=== PATIENT | male | born 1975 | race Caucasian/White ===

== ENCOUNTER → 2016-08-27 | Outpatient (CLI) | payer BC ==
[~2016-08-27] MED LIST: ACET-749 PO; CHOLCAP5 PO; DIPH25TA24 PO; DULO-24 PO; GABA1CAP4 PO; HYDR-5688 PO; IBUP-1050 PO; MELO15TA4 PO; TRAM-10 PO; TURM1CAP4 PO
--- NOTE | 2016-08-27 11:50 | DIAGNOSTIC IMAGING REPORT ---
MRI OF THE CERVICAL SPINE WITHOUT CONTRAST CLINICAL HISTORY: Right cervical radiculopathy. Status post right C7-T1 foraminotomy. COMPARISON: MRI of the cervical spine November 25, 2015 TECHNIQUE: Utilizing a 0.7 Mary Ann open magnet and dedicated coil, multiplanar, multiecho imaging of the cervical spine was performed without IV contrast. FINDINGS: Alignment of the cervical spine is anatomic. Vertebral body heights are maintained. There is no marrow replacement. Cervical cord signal and caliber are normal. There is no intracanalicular mass or fluid collection. Visualized portions of the posterior fossa are unremarkable. C2-C3: The central canal and neural foramen are patent. C3-C4: The central canal and neural foramen are patent. C4-C5: The central canal and neural foramen are patent. C5-C6: The central canal and neural foramen are patent. There is minimal disc bulge. C6-C7: The central canal and neural foramen are patent. There is minimal disc bulge. C7-T1: Post surgical findings are noted suggestive of a right hemilaminotomy. A right paracentral/foraminal disc protrusion with associated uncovertebral hypertrophy is again noted. Severe right neural foraminal narrowing is noted. The left neural foramen is patent. IMPRESSION: 1. Right paracentral/right foraminal disc osteophyte complex and uncovertebral hypertrophy at C7-T1 which result in severe narrowing of the right neural foramen. 2. Post surgical findings at the C7-T1 level. No significant central canal stenosis. Normal cervical cord signal and caliber. 3. Minimal disc bulges at C5-C6 and C6-C7. Electronically signed by: Sony Hernandez M.D. 08/27/2016 11:48 AM
== END | disposition home or self-care (01) ==
LOC: C.OPENMRI 10:26
PROVIDERS: ATTEND Orthopaedic Surgery
DX: M54.12 Radiculopathy, cervical region (principal)

== ENCOUNTER → 2017-07-30 | Outpatient (CLI) | payer BC ==
--- NOTE | 2017-07-30 12:19 | DIAGNOSTIC IMAGING REPORT ---
L-SPINE MIN 4 VIEWS ROUTINE HISTORY: 42 years-old Male BILATERAL LOW BACK PAIN WITH LEFT SIDED SCIATICA acute low back pain with left-sided sciatica COMPARISON: CT abdomen and pelvis 06/27/2016 TECHNIQUE: 5 views of the lumbar spine FINDINGS: 5 nonrib-bearing lumbar type vertebral segments. No spondylolysis or spondylolisthesis. Rudimentary disc space is noted at S1-S2. Mild to moderate intervertebral disc space narrowing at L5-S1. Mild multilevel endplate spurring without acute fracture or subluxation. Mild intervertebral disc space narrowing is also present at the T11-T12 level. IMPRESSION: 1. No acute fracture or subluxation. 2. Mild degenerative changes as above. The above report was generated using voice recognition software. It may contain grammatical, syntax or spelling errors. Electronically signed by: El Brown M.D. 07/30/2017 12:17 PM Dictated Date/Time: 07/30/2017 12:11 PM
== END | disposition home or self-care (01) ==
LOC: C.RAD 10:41
PROVIDERS: ATTEND Nurse Practitioner Family
DX: M54.41 Lumbago with sciatica, right side (principal); M54.42 Lumbago with sciatica, left side

== ENCOUNTER 2017-08-02 07:05 | Emergency (ER) | payer BC ==
[~2017-08-02] VITALS: Ht 167.6 cm; Wt 106.0 kg
[2017-08-02 07:10] VITALS: TEMP 36.3; Ht 167.6 cm; Wt 106.0 kg
[2017-08-02] MEDS ORDERED: DULO1CAP40 PO (07:46)
[2017-08-02] MEDS ORDERED: NAPR-1169 PO (07:46)
[2017-08-02] MEDS ORDERED: KETOROLAC TROMETHAMINE 60 MG/2 ML VIAL IM STA (08:03)
[2017-08-02] MEDS ORDERED: DEXAMETHASONE SOD INJ 4 MG/ML VIAL IM STA (08:03)
[2017-08-02] MEDS ORDERED: ONDANSETRON 4MG OD TAB PO STA (08:03)
[2017-08-02] MEDS ORDERED: MoRPHine SULFATE 10 MG/ML CARP/VIAL IM STA (08:03)
[2017-08-02] MEDS ORDERED: CYCL10TA6 PO (08:26)
[2017-08-02] MEDS ORDERED: HYDR-5688 PO (08:26)
[2017-08-02] MEDS ORDERED: METH4PAK PO (08:26)
--- NOTE | 2017-08-02 08:46 | EMERGENCY ROOM VISIT NOTE ---
ED Visit Note First contact with patient: 07:20 CHIEF COMPLAINT: Low back pain 1 week HISTORY OF PRESENT ILLNESS: Patient is a 42-year-old white male who presents emergency department accompanied by his for evaluation of low back pain 1 week. He reports that he has had problems with his low back for at least a year , but his pain has been worse over the last week after he states that he tripped over a ladder and fell. He saw his primary care provider 3 days ago, and had lumbar spine x-rays performed. He was told to take naproxen which he has been taking as discussed. He tried using ice intermittently. He notes a constant, stabbing pain in the left low back, that radiates to the lateral aspect of the hip out the lateral aspect of the thigh. It is not go below the knee. Pain is worse with any attempts at movement. This morning he states that his left leg gave out on him due to pain. He rates his discomfort a 9/10. He denies any symptoms in the right leg. No bowel or bladder incontinence. No saddle anesthesias. He denies any numbness, tingling or weakness into the lower extremities. He denies any abdominal pain, nausea or vomiting. No urinary symptoms. He is most comfortable when a flying flat on his back. REVIEW OF SYSTEMS: Review of systems as per HPI. All other systems reviewed were negative. 10 systems reviewed. PMH: Electronic medical records are reviewed and summarized as above/below. See Problem List. SOCIAL HISTORY: Patient lives at home with his . Nonsmoker. He is employed. PHYSICAL EXAM: Vital Signs: Reviewed Nurse's notes. CONSTITUTIONAL: Patient is uncomfortable appearing 42-year-old white male who is awake and alert laying supine on the gurney in moderate distress due to their back pain. There is significant discomfort with position changes. CARDIOVASCULAR: Regular rate and rhythm, with normal S1 and S2, no murmur or gallop or rub is heard. No carotid bruits auscultated. No JVD. Peripheral pulses easily palpable. RESPIRATORY: Breath sounds equal and clear to auscultation without wheezes, rales, or rhonchi heard. Full and equal chest expansion without accessory muscle use or retractions. ABDOMEN: Bowel sounds are present. Abdomen is soft, nontender and nondistended. INTEGUMENTARY: No lesions or rash, normal skin turgor. LYMPH: No lymphadenopathy. SPINE: Examination of the patient's back does not demonstrate any ecchymosis, abrasions or outward signs of trauma. No erythema, increased warmth or induration. There is no midline tenderness to palpation over the spinous processes. No reproducible paraspinous muscle tenderness or spasm. There is no pain over the SI joint or the sciatic notch. He has increased pain with range of motion including rotation and flexion. EXTREMITIES: Leg lengths are symmetrical. Negative logroll bilaterally. Normal strength including dorsi-flexion and plantar flexion of the great toes and ankles and flexion and extension of the knees and flexion of the hips. Positive left straight leg raise testing, negative right straight leg raise testing. Lower extremity DTRs are equal and symmetrical bilaterally. Distal pulses are easily palpable. Sensation light touch is intact over the lower extremities bilaterally. EMERGENCY DEPARTMENT COURSE: The patient was seen and evaluated as above. Old records were reviewed. X-rays from 2 days ago noted some mild degenerative changes. Treatment options were discussed with the patient. He does not have any physical exam findings that are concerning for acute cord compression or cauda equina syndrome. He did have a fall recently, but had negative radiographs just 3 days ago. He has been taking NSAIDs without relief. The patient was treated with IM Toradol, morphine, Decadron and oral Zofran. He was reassessed, and reported that his pain had improved. He was able to move around on the bed more easily. He rated his discomfort a 2/10 at discharge. Conservative care measures were discussed with the patient. He was placed on a Medrol Dosepak, and given Flexeril and [place]um that he can use for breakthrough spasms/pain. He was discharged home with his driving. Advised to follow- up with his primary care provider for further care and evaluation as he may require PT for pain management referral. Patient was reviewed in the [facility] Prescription Drug Monitoring Program, and there were no red flags noted. Blood pressure screening: Patient was found to have a slightly elevated blood pressure due to circumstances. I do not believe that the patient requires hypertension monitoring. MEDICAL DECISION MAKING: I do not suspect acute compression syndrome, cauda equina, diskitis, epidural abscess, hematoma or neurovascular compromise. Problem List Medical Problems: (1) Anxiety State Nos Status: Chronic (2) Arm pain, right Status: Resolved (3) Cellulitis of left hand Status: Resolved (4) Cervical spine disease Status: Resolved (5) Depressive Disorder Nec Status: Chronic (6) Hypertension Nos Status: Chronic (7) Kidney stones Status: Chronic (8) Lumbago Status: Chronic (9) Post-operative pain Status: Resolved (10) Postoperative seroma Status: Resolved (11) Puncture wound of left hand Status: Resolved (12) Tobacco Use Disorder Status: Resolved (13) Work related injury Status: Resolved Surgical Problems: (1) History of cervical spinal arthrodesis Status: Resolved (2) [place] Teeth Removal Status: Resolved Current/Historical Medications Scheduled Duloxetine HCl (Duloxetine HCl), 60 MG PO DAILY Methylprednisolone (Medrol Dosepak), 0 PO DAILY Naproxen (Naprosyn), 500 MG PO DAILY Scheduled PRN Cyclobenzaprine Hcl (Flexeril), 10 MG PO TID PRN for Muscle Spasms Hydrocodone/Acetaminophen 5MG/325MG ([place] 5MG/325MG), 1-2 TABLETS PO Q4 PRN for Pain Allergies Coded Allergies: Oxycodone (Verified Allergy, Unknown, itching, 08/02/17) Nitroglycerin (Unverified Adverse Reaction, Intermediate, syncopal episodes, 08/02/17) Vital Signs Date Time Temp Pulse Resp B/P (MAP) Pulse Ox O2 Delivery O2 Flow Rate FiO2 08/02/17 08:53 68 16 152/97 96 08/02/17 08:43 68 16 152/97 96 Room Air 08/02/17 07:10 36.3 78 20 166/122 96 Room Air Medications Administered Medications (Trade) Dose Ordered Sig/Alli Route Start Time Stop Time Status Last Admin Dose Admin Morphine Sulfate (MoRPHine SULFATE INJ) 10 mg NOW STAT IM 08/02/17 08:03 08/02/17 08:05 DC 08/02/17 08:13 10 MG Ketorolac Tromethamine (Toradol Inj) 60 mg NOW STAT IM 08/02/17 08:03 08/02/17 08:06 DC 08/02/17 08:12 60 MG Dexamethasone Sodium Phosphate (Decadron Inj) 10 mg NOW STAT IM 08/02/17 08:03 08/02/17 08:06 DC 08/02/17 08:13 10 MG Ondansetron HCl (Zofran Odt) 4 mg NOW STAT PO 08/02/17 08:03 08/02/17 08:06 DC 08/02/17 08:12 4 MG Departure Information Impression Primary Impression: Acute radicular low back pain Prescriptions Hydrocodone/Acetaminophen 5MG/325MG ([place] 5MG/325MG) Tab 1-2 TABLETS PO Q4 Y for Pain, #20 TAB For Initial Treatment Prov: Danielle Wing PA 08/02/17 Cyclobenzaprine Hcl (FLEXERIL) 10 Mg Tab 10 MG PO TID Y for Muscle Spasms, #30 TAB Prov: Danielle Wing PA 08/02/17 Methylprednisolone (MEDROL DOSEPAK) 4 Mg Claudy 0 PO DAILY, #1 PKT ONCE DAILY DIRECTED Prov: Danielle Wing PA 08/02/17 Referrals Griselda Gibbons (PCP) Patient Instructions My [facility] Additional Instructions DO NOT drive, drink alcohol, operate machinery, or perform dangerous activities today. You were given medications in the ER that can affect your ability to safely function or operate a vehicle. Medrol Dosepak: Once daily until the prescription is finished. It is best to take this earlier in the day as some patients note occasional difficulty falling asleep when taken in the late evening. Arcanum 5/325mg: Take 1-2 pills every four hours for breakthrough pain. Avoid alcohol, operating machinery or dangerous equipment, working on ladders or roofs , DRIVING, or situations where being under the influence may be dangerous. It is recommended to use an [id number] stool softener such as Colace, 100mg twice daily while taking this medication to avoid constipation. Cyclobenzaprine (Flexeril) 10 mg: Take 1 pills 3 times daily as needed for muscle spasms.. Avoid alcohol, operating machinery or dangerous equipment, working on ladders or roofs, DRIVING, or situations where being under the influence may be dangerous. Hold Naproxen while taking steroid taper. Rest and avoid heavy lifting until your symptoms resolve and then gradually return to full activity. A good rule of thumb is if it hurts your back to perform a certain activity, then it should be avoided until you are healthy again. A heating pad, warm compresses, or a hot shower may help with tight muscles and can be done several times a day as needed. Continue current medications. Return to the ER immediately for any numbness, tingling, severe pain, loss of control of your bowels or bladder, inability to walk, or as needed. Follow up with your primary care physician within 3-5 days for a recheck of your current condition.
[2017-08-02 08:53] VITALS: BP 152/97; PULSE 68; O2SAT 96
== END 2017-08-02 08:54 | disposition home or self-care (01) ==
LOC: C.EDB 07:06
DX: M54.5 Low back pain (principal); W18.31XA Fall on same level due to stepping on an object, initial encounter; I10 Essential (primary) hypertension; F32.9 Major depressive disorder, single episode, unspecified; Z79.899 Other long term (current) drug therapy

== ENCOUNTER 2017-08-03 10:53 | Emergency (ER) | payer BC ==
[~2017-08-03] VITALS: Ht 167.6 cm; Wt 108.5 kg
[~2017-08-03 10:53] MED LIST changes: +CYCL10TA6 PO; +DULO1CAP40 PO; +METH4PAK PO; +NAPR-1169 PO
[2017-08-03 10:56] VITALS: TEMP 36.8; Ht 167.6 cm; Wt 108.5 kg
[2017-08-03] MEDS ORDERED: KETOROLAC TROMETHAMINE 60 MG/2 ML VIAL IM STA (11:26)
[2017-08-03] MEDS ORDERED: DEXAMETHASONE SOD INJ 10 MG/ML VIAL IM STA (11:26)
[2017-08-03] MEDS ORDERED: DEXAMETHASONE SOD INJ 4 MG/ML 5 ML VIAL IM STA (11:26)
[2017-08-03 12:25] LABS: URINE APPEARANCE CLEAR (CLEAR); URINE BILIRUBIN NEG (NEG); URINE COLOR YELLOW; URINE NITRITE NEG (NEG); URINE PH 5.5 (4.5-7.5); URINE SPECIFIC GRAVITY 1.023 (1.000-1.030); UROBILINOGEN NEG (NEG); ZZUR CULT IF INDIC CLEAN CATCH NO
[2017-08-03 12:27] LABS: MANUAL MICROSCOPIC REQUIRED? NO; REVIEW REQ? NO
--- NOTE | 2017-08-03 12:43 | EMERGENCY ROOM VISIT NOTE ---
History First contact with patient: 11:18 Chief Complaint: BACK PAIN Stated Complaint: LOWER BACK PAIN-LEFT SIDE History of Present Illness The patient is a 42 year old male who presents to the Emergency Room with complaints of persistent left low back pain. The patient has been seen here on several occasions in the past several weeks for this back pain. He had an x- ray performed on July 30 which was ordered by his family physician which revealed [id number] disc space narrowing and at L5-S1 and multilevel endplate spurring but no other significant abnormality. He was seen by his PCP on Saturday for the back pain. She told him just to take his naproxen. The pain persisted therefore he was in the emergency room yesterday. He was given steroids muscle relaxers and narcotics for the pain. The patient states it is not getting any better. The patient states at 4 AM he took 2 hydrocodone, a muscle relaxer and a steroid. At 9 AM he took another 2 hydrocodone. The patient states the pain radiates down the back of his left leg. The patient states today he is now having difficulty urinating but denies any urinary frequency, urgency, dysuria, hematuria or loss of bowel or bladder control. The patient denies any saddle anesthesia. The patient does see a spine surgeon at [facility], for his cervical spine. He has mentioned in the past that he has chronic low back pain. The patient denies any new injury to his back. The patient denies any history of kidney stones. The patient denies any abdominal pain. Review of Systems 10 system review was performed and was negative unless stated otherwise history of present illness. Past Medical/Surgical History Medical Problems: (1) Anxiety State Nos (2) Arm pain, right (3) Cellulitis of left hand (4) Cervical spine disease (5) Depressive Disorder Nec (6) Hypertension Nos (7) Kidney stones (8) Lumbago (9) Post-operative pain (10) Postoperative seroma (11) Puncture wound of left hand (12) Tobacco Use Disorder (13) Work related injury Surgical Problems: (1) History of cervical spinal arthrodesis (2) [place] Teeth Removal Family History FH: diabetes mellitus FH: hypertension FH: kidney disease Social History Smoking Status: Never Smoker Alcohol Use: occasionally Marital Status: Housing Status: lives with family Current/Historical Medications Scheduled Duloxetine HCl (Duloxetine HCl), 60 MG PO DAILY Methylprednisolone (Medrol Dosepak), 0 PO DAILY Naproxen (Naprosyn), 500 MG PO DAILY Scheduled PRN Cyclobenzaprine Hcl (Flexeril), 10 MG PO TID PRN for Muscle Spasms Hydrocodone/Acetaminophen 5MG/325MG ([place] 5MG/325MG), 1-2 TABLETS PO Q4 PRN for Pain Physical Exam Vital Signs Date Time Temp Pulse Resp B/P (MAP) Pulse Ox O2 Delivery O2 Flow Rate FiO2 08/03/17 10:56 36.8 102 20 178/93 95 Room Air Physical Exam PHYSICAL EXAM: Vital Signs normal: Reviewed Nurse's notes and agree. GEN.: 42- year-old white male appears in no acute distress. MENTAL STATUS: Alert and oriented 3. CHEST: Clear to auscultation without wheezes rales or rhonchi. cardiac: Regular rate and rhythm without murmur. BACK: No CVA tenderness noted. ABDOMEN: Positive bowel sounds all 4 quadrants. Soft, nontender to palpation without organomegaly or masses. LUMBAR SPINE: No gross bony abnormality noted. Patient is nontender to palpation over the spinous processes. He is nontender to palpation over the paravertebral regions bilaterally. He has full range of motion of the lumbar spine with pain elicited with flexion, extension and left lateral bending muscle strength is 5 out of 5 bilateral lower extremities and symmetrical. NEURO: Patient is able to heel and toe walk without difficulty. I lateral patellar and Achilles reflexes are 2+. Sensation is intact to pinprick bilateral lower extremities. Negative straight leg raise bilaterally. Medical Decision & Procedures Laboratory Results Test 08/03/17 12:00 Urine Color YELLOW Urine Appearance CLEAR (CLEAR) Urine pH 5.5 (4.5-7.5) Urine Specific [place] 1.023 (1.000-1.030) Urine Protein NEG (NEG) Urine Glucose (UA) NEG (NEG) Urine Ketones NEG (NEG) Urine Occult Blood NEG (NEG) Urine Nitrite NEG (NEG) Urine Bilirubin NEG (NEG) Urine Urobilinogen NEG (NEG) Urine Leukocyte Esterase NEG (NEG) Medications Administered Medications (Trade) Dose Ordered Sig/Alli Route Start Time Stop Time Status Last Admin Dose Admin Ketorolac Tromethamine (Toradol Inj) 60 mg NOW STAT IM 08/03/17 11:26 08/03/17 11:29 DC 08/03/17 11:58 60 MG Dexamethasone Sodium Phosphate (Decadron Inj) 10 mg NOW STAT IM 08/03/17 11:26 08/03/17 11:58 DC 08/03/17 12:12 10 MG ED Course The patient was evaluated. The patient's EMR medication list were reviewed. X- ray was reviewed as per history of present illness. Urinalysis was ordered. The patient was given Toradol 60 mg IM, Decadron 10 mg IM. The patient's urine was negative. The patient was reevaluated and was feeling slightly better. The patient was discharged home. Medical Decision The patient has already had an x-ray done of his back. His urine did not reveal any evidence of UTI. I feel that he just did not give the meds enough time to start working properly. He was given another IM dose of Decadron to hopefully give him relief sooner. [place] Drug Monitoring Program Search Results: patient reviewed within database Medication Reconcilliation Current Medication List: was personally reviewed by me Blood Pressure Screening Patient's blood pressure: Elevated blood pressure Blood pressure disposition: Elevated BP felt to be situational Impression Primary Impression: Low back pain with left-sided sciatica Departure Information Dispostion Home / Self-Care Condition GOOD Referrals Griselda GibbonsPArsh (PCP) Forms HOME CARE DOCUMENTATION FORM, IMPORTANT VISIT INFORMATION Patient Instructions ED Sciatica, My [facility] Additional Instructions Continue all medications as prescribed. Also recommend [id number] ibuprofen 600 mg every 6 hours with food for pain if you're not taking the naproxen. Do not stay in any one position for any extended period of time. If symptoms are not improving by Saturday or Saturday, follow-up with your family physician for reevaluation.
[2017-08-03 14:01] VITALS: BP 166/88; PULSE 83; O2SAT 95
== END 2017-08-03 13:50 | disposition home or self-care (01) ==
LOC: C.EDB 10:54 → C.EDC 13:50
DX: M54.42 Lumbago with sciatica, left side (principal); I10 Essential (primary) hypertension; F32.9 Major depressive disorder, single episode, unspecified; Z87.442 Personal history of urinary calculi; Z98.1 Arthrodesis status; Z98.818 Other dental procedure status; Z83.3 Family history of diabetes mellitus; Z82.49 Family history of ischemic heart disease and other diseases of the circulatory system; Z79.899 Other long term (current) drug therapy

== ENCOUNTER → 2017-10-18 | Outpatient (CLI) | payer BC, OTHER ==
[~2017-10-18] MED LIST changes: -ACET-749 PO; -CHOLCAP5 PO; -CYCL10TA6 PO; -DIPH25TA24 PO; -DULO-24 PO; -GABA1CAP4 PO; -IBUP-1050 PO; -MELO15TA4 PO; -METH4PAK PO; -TRAM-10 PO; -TURM1CAP4 PO
--- NOTE | 2017-10-18 09:56 | DIAGNOSTIC IMAGING REPORT ---
CERVICAL SPINE 2 OR 3 VIEWS CLINICAL HISTORY: S/P CERVICAL DISCECTOMY WITH FUSION COMPARISON STUDY: Cervical spine MRI 08/27/2016. FINDINGS: Straightening of the cervical spine. The cervical spinal is visualized from C1 through T1. There is anterior cervical discectomy and fusion at C7-T1. The C7-T1 disc space appears fused. Mild periprosthetic lucency at the C7 screw which measures up to 1.5 mm in thickness. The hardware appears intact. The remaining disc spaces are preserved. Prevertebral soft tissues and the C1-C2 interval are well-maintained. The lung apices are clear. IMPRESSION: 1. Anterior cervical discectomy and fusion at C7-T1. There is mild periprosthetic lucency surrounding the C7 screws. This could represent mild loosening. 2. Straightening of the cervical spine. Electronically signed by: Frandy Pagan M.D. 10/18/2017 9:54 AM Dictated Date/Time: 10/18/2017 9:50 AM
== END | disposition home or self-care (01) ==
LOC: C.RDSM 07:00
PROVIDERS: ATTEND Orthopaedic Surgery
DX: Z98.890 Other specified postprocedural states (principal)